=== PATIENT | male | born 1950 | race Caucasian/White ===

== ENCOUNTER 2024-06-24 09:50 | Observation (INO) | payer OTHER ==
[~2024-06-24] VITALS: Ht 182.9 cm; Wt 86.2 kg
[~2024-06-24 09:50] MED LIST: ATOR80 PO; HYDR1TAB94 PO; LANS15EC PO; METO25 PO; Prinivil10 MG PO; [UNRECOGNIZED DRUG - OTHER] PO
[2024-06-24] MEDS ORDERED: HydrALAZINE HCl 20 MG / ML 1ML Vial IV ONE ×2 (10:30→11:15)
[2024-06-24 11:20] LABS: BASOPHILS ABSOLUTE AUTO 0.06 K/mm3 (0.00-0.23); BASOPHILS PERCENT AUTO 1 % (0-2); EOSINOPHILS ABSOLUTE AUTO 0.48 K/mm3 (0.00-0.68); EOSINOPHILS PERCENT AUTO 6 % (0-6); Hematocrit 40.8 % (37.0-53.0); Hemoglobin 13.6 g/dL (13.5-17.5); IMMATURE GRAN ABSOLUTE AUTO 0.02 K/mm3 (0.00-0.10); IMMATURE GRAN PERCENT AUTO 0 % (0-1); LYMPHOCYTES ABSOLUTE AUTO 2.03 K/mm3 (0.84-5.20); LYMPHOCYTES PERCENT AUTO 26 % (21-46); MONOCYTES ABSOLUTE AUTO 0.53 K/mm3 (0.16-1.47); MONOCYTES PERCENT AUTO 7 % (4-13); Mean Corpuscular HGB 30.5 pg (26.0-34.0); Mean Corpuscular HGB Conc 33.3 g/dL (31.5-36.5); Mean Corpuscular Volume 92 fL (80-100); Mean Platelet Volume 11.4 fL (9.1-12.4); NEUTROPHILS ABSOLUTE AUTO 4.62 K/mm3 (1.96-9.15); NEUTROPHILS PERCENT AUTO 60 % (41-73); Platelet Count 283 K/mm3 (150-400); RDW Coefficient Variation 14.1 % (11.7-14.2); RDW Standard Deviation 48.1 fL (35.1-46.3); Red Blood Cell Count 4.46 M/mm3 (4.30-5.90); White Blood Cell Count 7.74 K/mm3 (4.00-11.30)
[2024-06-24] MEDS ORDERED: Aspirin 325 MG Tab PO ONE (11:25)
[2024-06-24] MEDS ORDERED: Clopidogrel Bisulfate 75 MG Tab PO ONE (11:35)
[2024-06-24 11:41] LABS: Albumin, Blood 3.9 g/dL (3.4-5.0); Bilirubin, Total 0.7 mg/dL (0.1-1.0); Calcium, Blood 9.6 mg/dL (8.5-10.1); Creatinine, Blood 1.06 mg/dL (0.60-1.20); Potassium, Blood 5.8 mmol/L (3.5-5.5); Total Protein, Blood 7.9 g/dL (6.4-8.2)
[2024-06-24] MEDS ORDERED: OMEP20ER PO (14:46)
[2024-06-24] MEDS ORDERED: ZOLOFT100 M1 PO (14:47)
[2024-06-24] MEDS ORDERED: MEMA10 PO (14:48)
[2024-06-24] MEDS ORDERED: CLONAZEPAM1 MG PO (14:48)
[2024-06-24] MEDS ORDERED: PROP10 PO (14:49)
[2024-06-24 15:01] VITALS: BP 177/83
[2024-06-24] MEDS ORDERED: SUMAtriptan Succinate 25 MG Tab PO PRN (15:35)
[2024-06-24] MEDS ORDERED: Acetaminophen 325 MG TABLET PO PRN (15:35)
--- NOTE | 2024-06-24 18:26 | NUR ---
PT ADMIT FROM ER. ALERT AND ORIENTED X4, ABLE TO TRANSFER TO BED FROM CHAIR WITH SBA. SLIGHT DEFICET NOTED TO LUE AND LLE. NO FACIAL DROOP NOTED. DENIES CHEST PAIN. C/P HEADACHE 10/12. NOTIFIED.
[2024-06-24 19:17] VITALS: BP 180/92
[2024-06-25 00:05] VITALS: BP 151/96
[2024-06-25 04:41] VITALS: BP 146/97
[2024-06-25 06:01] LABS: CHOL/HDL RATIO 3.7; Cholesterol 193 mg/dL (50-200); HDL Cholesterol 52 mg/dL (>39); LDL/HDL RATIO 2.4; Low Density Lipoprotein Chol 122 mg/dL (0-110); Triglycerides 93 mg/dL (30-160); Very Low Density Lipoprot Chol 18 mg/dL (6-32)
--- NOTE | 2024-06-25 06:43 | NUR ---
SHIFT SUMMARY AT START OF SHIFT, PT LYING IN BED. PT SPOUSE AT BEDSIDE. 1999 NEURO ASSESSMENT SHOWED SLIGHT DEFICITS IN LEFT SIDE, CONSISTENT WITH PREVIOUS EVALUATIONS. PT [employer] STRENGTH EQUAL BILATERALLY. PT MEDICATED PER EMAR. PT STATED SLIGHT HEADACHE. PT OFFERED PAIN MEDICATION PER EMAR. PT DECLINED MEDICATION, BUT ASKED FOR AN ICE PACK. CONTINUING TO MONITOR. PT CURRENTLY LYING IN BED WATCHING TV WITH CALL LIGHT IN REACH. APPROX 2200, PT SCD S PLACED BACK ON PT, AND HE IS SLEEPING COMFORTABLY. LIGHTS AND TV OFF, CALL LIGHT WITHIN REACH AND SPOUSE AT BEDSIDE. DURING MIDNIGHT Q4 NEURO ASSESSMENT, THIS RN NOTED PT LEFT SIDED DEFICIT IS LESSENING. PT NO LONGER HAS LEFT FACIAL DROOP, TONGUE NOW MOVES SIDE TO SIDE EQUALLY. PT [employer] STRENGTH SIGNIFICANTLY IMPROVED ON LEFT. FOOT STRENGTH ALSO SIGNIFICANTLY IMPROVED ON LEFT. PT DENIES N/T. STATES HE IS STILL FEELING HEADACHE, CHRONIC NECK PAIN. PT DECLINED PAIN MEDICATIONS AND ICE PACK. ASKED FOR WARM BLANKET, AND IS GOING BACK TO SLEEP. CALL LIGHT IN REACH. 0400 NEURO ASSESSMENT PT HAS VERY LITTLE DEFICIT REMAINING IN LUE. SLIGHTLY MORE IN LLE, BUT CONSIDERABLY LESS THAN START OF SHIFT. PT CONTINUING TO IMPROVE IN NEURO ASSESSMENTS. PT DENIES PAIN AND DECLINES ANY ICE, HEAT, OR MEDICINAL NEEDS FOR PAIN. PT ALERT AND RESPONSIVE. CALL LIGHT WITHIN REACH. HE HAS BEEN PLEASANT AND COOPERATIVE WITH CARE.
[2024-06-25 07:34] VITALS: BP 163/105
[2024-06-25] MEDS ORDERED: Aspirin 81 MG Chew PO SCH (09:00)
[2024-06-25] MEDS ORDERED: AmLODIPine Besylate 5 MG Tab PO SCH (09:00)
[2024-06-25] MEDS ORDERED: Enoxaparin 40 MG/0.4 ML SYR SC SCH (09:00)
[2024-06-25] MEDS ORDERED: Clopidogrel Bisulfate 75 MG Tab PO SCH (09:00)
[2024-06-25] MEDS ORDERED: CYCL10 PO (11:00)
[2024-06-25 11:54] VITALS: BP 169/107
--- NOTE | 2024-06-25 13:03 | NUR ---
MARKET REPORTER CALLED STATING MRI MACHINE IS DOWN. NOTIFIED DR. PILLAI.
[2024-06-25] MEDS ORDERED: ASPI81CH PO (13:56)
[2024-06-25] MEDS ORDERED: AMLO5 PO (13:56)
[2024-06-25] MEDS ORDERED: CLOP75 PO (13:56)
--- NOTE | 2024-06-25 15:52 | NUR ---
DISCHARGE NOTE PATIENT EDUCATED ON DISCHARGE PACKET AND INSTRUCTIONS AND NEW PRESCRIPTIONS. IV REMOVED. TELE DC'D AND SENT BACK TO PCU. PATIENT TO FOLLOW UP WITH PCP WITHIN TWO WEEKS. NO NEW QUESTIONS OR CONCERNS PRIOR TO DC. ESCORTED DOWNSTAIRS VIA WHEELCHAIR BY RESIDENT INTERN.
== END 2024-06-25 15:15 | disposition home or self-care (01) ==
LOC: ER 09:50 → MEDS 09:51 → ER 14:39 → MEDS 14:45 → ER 14:57 → MEDS 06-25 15:15
PROVIDERS: Emergency Medicine; ADMIT Internal Medicine
DX: I63.9 Cerebral infarction, unspecified (principal); R29.810 Facial weakness; G81.94 Hemiplegia, unspecified affecting left nondominant side; I16.0 Hypertensive urgency; I10 Essential (primary) hypertension; E87.5 Hyperkalemia; G04.90 Encephalitis and encephalomyelitis, unspecified; G62.9 Polyneuropathy, unspecified; F32.A Depression, unspecified; G25.3 Myoclonus; Z88.2 Allergy status to sulfonamides; Z88.5 Allergy status to narcotic agent; Z88.8 Allergy status to other drugs, medicaments and biological substances; Z79.82 Long term (current) use of aspirin; Z79.899 Other long term (current) drug therapy
CPT/HCPCS: 36415; 70450; 70496; 70498; 80053; 80061; 84132; 85025; 93005; 93010; 93306; 96372; 96374-59; 96376-59; 97110; 97112; 97116; 97162; 97165; 97535; 99285-25; A9270; G0378; J0360; J1650; Q9967